=== PATIENT | female | born 1965 | race African-American/Black ===

== ENCOUNTER 2017-06-28 13:27 | Emergency (ER) | payer MEDICAID ==
[~2017-06-28] VITALS: Ht 157.5 cm; Wt 65.0 kg
[2017-06-28 13:40] VITALS: BP 161/90
== END 2017-06-28 18:36 | disposition left against medical advice (07) ==
LOC: ER 13:39
DX: R10.9 Unspecified abdominal pain (principal); Z53.21 Procedure and treatment not carried out due to patient leaving prior to being seen by health care provider

== ENCOUNTER 2017-08-03 10:26 | Emergency (ER) | payer MEDICAID ==
[~2017-08-03] VITALS: Ht 157.5 cm; Wt 66.0 kg
[2017-08-03 15:05] VITALS: BP 142/78
[2017-08-03 15:29] LABS: HEMOGLOBIN. 12.5 g/dL (12.0-16.0); MEAN CORPUSCULAR HEMOGLOBIN 25.2 pg (28.0-32.0); MEAN CORPUSCULAR VOLUME 78.5 fL (81.0-99.0); PLATELET 143 x1000/uL (130-400); RED BLOOD CELL COUNT 4.98 mill/uL (4.2-5.4)
[2017-08-03 15:30] LABS: CHLORIDE 108 mEq/L (98-107)
[2017-08-03 15:39] LABS: CARBON DIOXIDE 26 mEq/L (21-32)
[2017-08-03 16:32] LABS: PLATELET ESTIMATE NORMAL
== END 2017-08-03 16:20 | disposition home or self-care (01) ==
LOC: ER 10:32
DX: M79.673 Pain in unspecified foot (principal); I10 Essential (primary) hypertension; F17.200 Nicotine dependence, unspecified, uncomplicated; F12.10 Cannabis abuse, uncomplicated; Z86.73 Personal history of transient ischemic attack (TIA), and cerebral infarction without residual deficits
CPT/HCPCS: 36415; 80053; 85025; 93970; 99285

== ENCOUNTER 2017-12-29 15:11 | Emergency (ER) | payer MEDICAID ==
[~2017-12-29] VITALS: Ht 157.5 cm; Wt 67.0 kg
[2017-12-29 15:45] VITALS: BP 150/92
[2017-12-29] MEDS ORDERED: IBUPROFEN 800MG TABLET PO ONE (15:45)
== END 2017-12-29 18:18 | disposition left against medical advice (07) ==
LOC: ER 15:11
DX: M79.604 Pain in right leg (principal); M79.89 Other specified soft tissue disorders; I10 Essential (primary) hypertension; Z88.3 Allergy status to other anti-infective agents; Z86.73 Personal history of transient ischemic attack (TIA), and cerebral infarction without residual deficits
CPT/HCPCS: 93971; 99284

== ENCOUNTER 2018-01-10 16:01 | Emergency (ER) | payer MEDICAID ==
[~2018-01-10] VITALS: Ht 157.5 cm; Wt 66.0 kg
[2018-01-10 17:35] LABS: CLARITY URINE CLOUDY (CLEAR); COLOR URINE YELLOW (YELLOW); KETONES URINE NEGATIVE (NEGATIVE); LEUKOCYTE ESTERASE URINE 2+ (NEGATIVE); NITRITE URINE NEGATIVE (NEGATIVE); OCCULT BLOOD URINE 2+ (NEGATIVE); PROTEIN URINE TRACE (NEGATIVE); SPECIFIC GRAVITY URINE 1.022 (1.005-1.030); UROBILINOGEN URINE 0.2 E.U./dL (0.2-1.0)
[2018-01-10 18:45] VITALS: BP 148/90
== END 2018-01-10 19:16 | disposition home or self-care (01) ==
LOC: ER 18:13
DX: N39.0 Urinary tract infection, site not specified (principal); R03.0 Elevated blood-pressure reading, without diagnosis of hypertension; Z88.1 Allergy status to other antibiotic agents
CPT/HCPCS: 81003; 81025; 99283

== ENCOUNTER 2018-02-23 16:25 | Emergency (ER) | payer MEDICAID ==
[~2018-02-23] VITALS: Ht 157.5 cm; Wt 66.0 kg
[2018-02-23] MEDS ORDERED: IBUPROFEN 600MG TABLET PO STA (20:31)
[2018-02-23 20:48] LABS: CLARITY URINE CLEAR (CLEAR); COLOR URINE YELLOW (YELLOW); KETONES URINE NEGATIVE (NEGATIVE); LEUKOCYTE ESTERASE URINE NEGATIVE (NEGATIVE); NITRITE URINE NEGATIVE (NEGATIVE); OCCULT BLOOD URINE NEGATIVE (NEGATIVE); PH URINE 6.5 (4.5-8.0); PROTEIN URINE NEGATIVE (NEGATIVE); SPECIFIC GRAVITY URINE 1.015 (1.005-1.030); UROBILINOGEN URINE 0.2 E.U./dL (0.2-1.0)
[2018-02-23 21:03] LABS: BASOPHILS % 0.9 % (0.0-2.0); EOSINOPHILS % 4.7 % (0.0-5.0); HEMATOCRIT. 37.4 % (36.0-48.0); HEMOGLOBIN. 12.5 g/dL (12.0-16.0); MEAN CORPUSCULAR VOLUME 77.7 fL (81.0-99.0); MEAN PLATELET VOLUME 9.7 fl (7.4-10.4); MONOCYTES % 5.2 % (2.0-8.0); NEUTROPHILS % 51.2 % (40.0-76.0); PLATELET 182 x1000/uL (130-400); RED BLOOD CELL COUNT 4.81 mill/uL (4.2-5.4); RED CELL DISTRIBUTION WIDTH 16.5 % (11.6-14.6)
[2018-02-23 21:10] LABS: CHLORIDE 107 mEq/L (98-107)
[2018-02-23 21:12] LABS: PROTHROMBIN TIME 9.6 sec (9.1-11.1)
[2018-02-23 22:22] VITALS: BP 155/82
== END 2018-02-23 22:26 | disposition home or self-care (01) ==
LOC: ER 17:05
DX: R07.81 Pleurodynia (principal); I10 Essential (primary) hypertension; Z86.73 Personal history of transient ischemic attack (TIA), and cerebral infarction without residual deficits; Z88.3 Allergy status to other anti-infective agents
CPT/HCPCS: 36415; 71045; 80053; 81003; 81025; 85025; 85610; 99285

== ENCOUNTER 2018-03-29 15:00 | Emergency (ER) | payer MEDICAID ==
[~2018-03-29] VITALS: Ht 162.6 cm; Wt 58.0 kg
[2018-03-29] MEDS ORDERED: MORPHINE SULFATE 10 MG/ML CPJ IM ONE (15:30)
[2018-03-29] MEDS ORDERED: KETOROLAC 30MG/ML VIAL IM ONE (15:30)
[2018-03-29 16:45] VITALS: BP 127/69
== END 2018-03-29 16:45 | disposition home or self-care (01) ==
LOC: ER 15:00
DX: S20.212A Contusion of left front wall of thorax, initial encounter (principal); S10.81XA Abrasion of other specified part of neck, initial encounter; I10 Essential (primary) hypertension; F17.200 Nicotine dependence, unspecified, uncomplicated; V49.49XA Driver injured in collision with other motor vehicles in traffic accident, initial encounter; Y93.89 Activity, other specified; Y92.89 Other specified places as the place of occurrence of the external cause; Y99.8 Other external cause status; Z86.73 Personal history of transient ischemic attack (TIA), and cerebral infarction without residual deficits; Z88.1 Allergy status to other antibiotic agents
CPT/HCPCS: 71045; 71250; 96372; 99284; J1885; J2270

== ENCOUNTER 2018-07-22 15:43 | Emergency (ER) | payer MEDICAID ==
[~2018-07-22] VITALS: Ht 157.5 cm; Wt 65.0 kg
[2018-07-22 15:50] VITALS: BP 186/100
== END 2018-07-22 23:33 | disposition left against medical advice (07) ==
LOC: ER 22:58
DX: Z53.21 Procedure and treatment not carried out due to patient leaving prior to being seen by health care provider (principal)
CPT/HCPCS: 93005

== ENCOUNTER 2018-08-24 21:48 | Emergency (ER) | payer MEDICAID ==
[~2018-08-24] VITALS: Ht 154.9 cm; Wt 73.0 kg
[2018-08-25 00:13] LABS: BASOPHILS % 0.5 % (0.0-2.0); EOSINOPHILS % 5.2 % (0.0-5.0); HEMATOCRIT. 30.4 % (36.0-48.0); LYMPHOCYTES % 35.2 % (20.0-50.0); MEAN CORPUSCULAR HEMOGLOBIN 25.7 pg (28.0-32.0); MEAN CORPUSCULAR VOLUME 77.8 fL (81.0-99.0); MEAN PLATELET VOLUME 9.2 fl (7.4-10.4); MONOCYTES % 7.9 % (2.0-8.0); NEUTROPHILS % 51.2 % (40.0-76.0); PLATELET 172 x1000/uL (130-400); RED CELL DISTRIBUTION WIDTH 16.2 % (11.6-14.6)
[2018-08-25 00:34] LABS: CHLORIDE 108 mEq/L (98-107)
[2018-08-25 07:35] VITALS: BP 149/93
== END 2018-08-25 08:06 | disposition left against medical advice (07) ==
LOC: ER 21:48 → ENRESERV 08-25 17:32 → CANRESERV 08-25 17:32 → CANBEDREQ 08-25 22:17
DX: R07.89 Other chest pain (principal); D50.9 Iron deficiency anemia, unspecified; R73.9 Hyperglycemia, unspecified; E88.09 Other disorders of plasma-protein metabolism, not elsewhere classified; J45.909 Unspecified asthma, uncomplicated; I10 Essential (primary) hypertension; Z86.73 Personal history of transient ischemic attack (TIA), and cerebral infarction without residual deficits; Z98.890 Other specified postprocedural states; Z88.1 Allergy status to other antibiotic agents
CPT/HCPCS: 36415; 71045; 83880; 84484; 93005; 99284

== ENCOUNTER 2019-03-24 11:57 | Emergency (ER) | payer MEDICAID ==
[~2019-03-24] VITALS: Ht 152.4 cm; Wt 66.0 kg
[2019-03-24 12:45] VITALS: BP 158/86
== END 2019-03-24 15:31 | disposition home or self-care (01) ==
LOC: ER 15:27
DX: M19.90 Unspecified osteoarthritis, unspecified site (principal); M79.601 Pain in right arm; I10 Essential (primary) hypertension; J45.909 Unspecified asthma, uncomplicated; Z87.891 Personal history of nicotine dependence; Z98.890 Other specified postprocedural states; Z88.1 Allergy status to other antibiotic agents; Z86.73 Personal history of transient ischemic attack (TIA), and cerebral infarction without residual deficits
CPT/HCPCS: 99281

== ENCOUNTER 2022-12-02 14:28 | Emergency (ER) | payer MEDICAID, OTHER ==
[~2022-12-02] VITALS: Ht 154.9 cm; Wt 66.0 kg
[~2022-12-02 14:28] MED LIST: CIPHCO EACH EAR; NAPR-681 PO; TRAM50TA3 PO
[2022-12-02 15:22] LABS: CLARITY URINE TURBID (CLEAR); COLOR URINE YELLOW (YELLOW); KETONES URINE TRACE (NEGATIVE); LEUKOCYTE ESTERASE URINE 3+ (NEGATIVE); NITRITE URINE NEGATIVE (NEGATIVE); OCCULT BLOOD URINE 3+ (NEGATIVE); PH URINE 5.5 (4.5-8.0); PROTEIN URINE 2+ (NEGATIVE); SPECIFIC GRAVITY URINE 1.022 (1.005-1.030); UROBILINOGEN URINE 0.2 E.U./dL (0.2-1.0)
[2022-12-02] MEDS ORDERED: SULF1TAB48 MT (16:59)
[2022-12-02] MEDS ORDERED: ACETAMINOPHEN 325MG TABLET PO ONE (17:00)
[2022-12-02] MEDS ORDERED: SULFAMETHOXAZOLE/TRIMETHOPRIM 800/160MG TABLET PO ONE (17:00)
[2022-12-02 17:20] VITALS: BP 142/84
== END 2022-12-02 17:21 | disposition home or self-care (01) ==
LOC: ER 14:28
DX: N39.0 Urinary tract infection, site not specified (principal); I10 Essential (primary) hypertension; Z88.1 Allergy status to other antibiotic agents
CPT/HCPCS: 81003; 87186; 99283

== ENCOUNTER 2023-11-22 04:20 | Emergency (ER) | payer MEDICAID, OTHER ==
[~2023-11-22] VITALS: Ht 154.9 cm; Wt 65.7 kg
[~2023-11-22 04:20] MED LIST changes: +SULF1TAB48 MT
[2023-11-22 04:31] VITALS: O2SAT 100
[2023-11-22 05:28] LABS: BASOPHILS % 0.9 % (0.0-2.0); DIFFERENTIAL COMMENT 0; EOSINOPHILS % 5.8 % (0.0-5.0); HEMATOCRIT. 35.2 % (36.0-48.0); HEMOGLOBIN. 11.6 g/dL (12.0-16.0); LYMPHOCYTES % 31.4 % (20.0-50.0); MEAN CORPUSCULAR HEMOGLOBIN 25.7 pg (28.0-32.0); MEAN CORPUSCULAR VOLUME 77.9 fL (81.0-99.0); MEAN PLATELET VOLUME 9.7 fl (7.4-10.4); MONOCYTES % 6.8 % (2.0-8.0); NEUTROPHILS % 55.1 % (40.0-76.0); PLATELET 167 x1000/uL (130-400); RED BLOOD CELL COUNT 4.52 mill/uL (4.2-5.4); RED CELL DISTRIBUTION WIDTH 16.5 % (11.6-14.6); WHITE BLOOD COUNT 7.5 x1000/uL (4.5-11.0)
[2023-11-22 05:33] LABS: CARBON DIOXIDE 28 mEq/L (21-32); CHLORIDE 106 mEq/L (98-107); POTASSIUM 3.1 mEq/L (3.5-5.1); SODIUM 143 mEq/L (136-145)
[2023-11-22 05:34] LABS: CALCIUM 9.8 mg/dL (8.7-10.4)
[2023-11-22 05:39] LABS: GLUCOSE 126 mg/dL (70-105); UREA NITROGEN BLOOD 14 mg/dL (9-23)
[2023-11-22 05:41] LABS: ALANINE AMINOTRANSFERASE 18 IU/L (10-49); ALBUMIN 4.5 g/dL (3.2-4.8); ASPARTATE AMINOTRANSFERASE 25 IU/L (<34); BILIRUBIN DIRECT 0.1 mg/dL (<=3.0); BILIRUBIN TOTAL 0.4 mg/dL (0.1-1.0); PROTEIN TOTAL 7.3 g/dL (6.0-8.3)
[2023-11-22 06:14] LABS: CLARITY URINE CLEAR (CLEAR); COLOR URINE YELLOW (YELLOW); GLUCOSE URINE NEGATIVE (NEGATIVE); KETONES URINE NEGATIVE (NEGATIVE); LEUKOCYTE ESTERASE URINE NEGATIVE (NEGATIVE); NITRITE URINE NEGATIVE (NEGATIVE); OCCULT BLOOD URINE NEGATIVE (NEGATIVE); PH URINE 8.5 (4.5-8.0); PROTEIN URINE NEGATIVE (NEGATIVE); SPECIFIC GRAVITY URINE 1.006 (1.005-1.030); UROBILINOGEN URINE 0.2 E.U./dL (0.2-1.0)
[2023-11-22] MEDS: POTASSIUM CHLORIDE 20MEQ TABLET SR PO ONE (06:30)
[2023-11-22 07:00] VITALS: BP 133/67; PULSE 67; RESP 20; TEMP 98.9
== END 2023-11-22 07:11 | disposition home or self-care (01) ==
LOC: ER 04:20
DX: R10.9 Unspecified abdominal pain (principal); E87.6 Hypokalemia; I10 Essential (primary) hypertension; Z88.1 Allergy status to other antibiotic agents
CPT/HCPCS: 36415; 74176; 80048; 80076; 81003; 83605; 85025; 99284